=== PATIENT | male | born 1945 | race Caucasian/White ===

== ENCOUNTER 2016-09-08 13:33 | Inpatient (IN) | payer OTHER ==
[~2016-09-08] VITALS: Ht 185.4 cm; Wt 107.6 kg
[~2016-09-08 13:33] MED LIST: AMANTADINE100 M1 PO; AMANTADINE100 MG PO; ARTIFICIALS TEA30 ML BOTH EYES; BACLOFEN20 MG PO; CYMBALTA60 MG PO; DRISDOL50000 UNIT PO; DULOXETINE HCL60 MG PO; EFUDEX 5% CREAM25 GM TP; GILENYA0.5 MG PO; MELOXICAM7.5 MG PO; NICOTINE PATCH1 EAC2 TD; NORCO 5/3251 TABLET PO; OXYBUTYNIN CHLOR5 M1 PO; PANTOPRAZOLE SO40 MG PO; PERCOCET 5/31 TABLET PO; PROTONIX40 MG PO; PROVIGIL200 MG PO; SIMVASTATIN20 MG PO; TIZANIDINE HCL4 MG PO; TYLENOL EXTRA500 MG PO; VITAMIN D31000 UNIT PO; VITAMIN D50000 UNI4 PO; ZANAFLEX4 M1 PO; ZESTORETIC 20-1 EAC1 PO; [UNRECOGNIZED DRUG - OTHER] TP
[2016-09-08 14:14] LABS: EOSINOPHIL (%) 0.8 % (0-5); EOSINOPHIL COUNT 0.1 K/uL (0-0.3); HEMATOCRIT 42.6 % (38.0-50.0); IMMATURE GRANULOCYTE (%) 0.7 % (0.0-0.7); IMMATURE GRANULOCYTE COUNT 0.1 K/uL; INSTRUMENT ABS NEUTROPHIL CT 7.9 K/uL; LYMPHOCYTE COUNT 0.3 K/uL (1.0-2.8); MCH 32.1 PG (29.0-34.0); MCHC 33.3 G/DL (30.0-36.0); MCV 96.4 FL (86-99); MEAN PLAT.VOLUME 9.7 uM^3 (9.0-12.4); MONOCYTE (%) 10.9 % (3-12); NEUTROPHIL (%) 84.2 % (45-76); NEUTROPHIL COUNT 7.9 K/uL (1.8-6.4); PLATELET COUNT 263 K/uL (156-360); RBC DIS.WIDTH-CV 12.3 % (11.8-14.6); RBC DIS.WIDTH-SD 44.3 % (39-53); RED BLOOD COUNT 4.42 M/uL (4.00-5.50); WHITE BLOOD COUNT 9.4 K/uL (4.1-10.2)
[2016-09-08] MEDS ORDERED: PROVIGIL200 MG PO (14:22)
[2016-09-08] MEDS ORDERED: GILENYA0.5 MG PO (14:23)
[2016-09-08 14:25] LABS: CHLORIDE 103 mEq/L (99-109); SODIUM 138 mEq/L (136-147)
[2016-09-08] MEDS ORDERED: TRAZODONE HCL50 MG PO (14:25)
[2016-09-08] MEDS ORDERED: OXAYDO5 MG PO (14:26)
[2016-09-08 14:27] LABS: GLUCOSE 95 mg/dL (70-99)
[2016-09-08 14:28] LABS: ANION GAP 12 MEQ/L (2-14)
[2016-09-08 14:29] LABS: TOTAL BILIRUBIN 0.6 mg/dL (0.0-1.0)
[2016-09-08 14:31] LABS: ALKALINE PHOSPHATASE 118 IU/L (3-129); GFR ESTIMATE (CALCULATED) 35 mL/min/
[2016-09-08 14:32] LABS: UREA NITROGEN (BUN) 41 mg/dL (9-23)
[2016-09-08 14:35] LABS: TROP-I INTERPRETATION NEGATIVE; TROPONIN-I < 0.01 ng/mL (0.0-0.30)
[2016-09-08] MEDS ORDERED: ERGOCALCIF50000 UNIT PO (16:29)
[2016-09-08] MEDS ORDERED: CAPSAICIN57 GM TP (16:31)
[2016-09-08] MEDS ORDERED: NATURAL BALANCE15 M1 BOTH EYES (16:32)
[2016-09-08 17:30] LABS: ADD MIUA? YES; BILIRUBIN NEGATIVE; BLOOD NEGATIVE; COLOR YELLOW ((YELLOW)); GLUCOSE (STRIP) NEGATIVE; KETONES NEGATIVE; LEUKOCYTES NEGATIVE; NITRITE NEGATIVE; PROTEIN (STRIP) NEGATIVE; UROBILINOGEN 0.2 MG/DL (0.2-1.0)
[2016-09-08 17:45] LABS: BACTERIA RARE /HPF; EPITHELIAL CELLS NONE SEEN /HPF; MUCUS NONE SEEN /LPF; RED BLOOD CELLS 0-5 /HPF (0-5); UCUL ADDED? NO; WHITE BLOOD CELLS 0-5 /HPF (0-5)
[2016-09-08 18:30] VITALS: BP 100/57
[2016-09-09 00:46] VITALS: BP 95/63
[2016-09-09 06:46] LABS: ALKALINE PHOSPHATASE 127 IU/L (3-129); ANION GAP 13 MEQ/L (2-14); CHLORIDE 104 MEQ/L (99-109); GFR ESTIMATE (CALCULATED) 53 mL/min/; POTASSIUM 4.6 MEQ/L (3.7-5.4); SAMPLE HEMOLYSIS CHECK 0; SAMPLE ICTERIC CHECK 0; SAMPLE LIPEMIA CHECK 0; SODIUM 138 MEQ/L (136-147); TOTAL BILIRUBIN 0.4 MG/DL (0.0-1.0); UREA NITROGEN (BUN) 34 mg/dL (9-23)
[2016-09-09 06:49] LABS: GLUCOSE 159 mg/dL (70-99)
[2016-09-09 07:20] VITALS: BP 113/61
[2016-09-09 15:03] VITALS: BP 119/63
[2016-09-09 20:50] VITALS: BP 115/57
[2016-09-09 23:40] VITALS: BP 125/59
[2016-09-10 07:27] VITALS: BP 108/62
[2016-09-10 08:49] LABS: ANION GAP 11 MEQ/L (2-14); CHLORIDE 107 MEQ/L (99-109); GFR ESTIMATE (CALCULATED) > 59 mL/min/; POTASSIUM 4.5 MEQ/L (3.7-5.4); SAMPLE HEMOLYSIS CHECK 0; SAMPLE ICTERIC CHECK 0; SAMPLE LIPEMIA CHECK 0; SODIUM 140 MEQ/L (136-147); UREA NITROGEN (BUN) 34 mg/dL (9-23)
[2016-09-10 08:59] LABS: GLUCOSE 114 mg/dL (70-99)
[2016-09-10 10:18] LABS: D-DIMER ELISA 0.75 mg/L FEU (< 0.57)
[2016-09-10 15:15] VITALS: BP 133/71
[2016-09-10 22:16] VITALS: BP 158/86
[2016-09-10 23:44] VITALS: BP 161/72
[2016-09-11 07:30] VITALS: BP 156/78
[2016-09-11] MEDS ORDERED: AMOX TR-K CLV1 EAC3 PO (14:55)
[2016-09-11] MEDS ORDERED: PREDNISONE20 MG PO (14:55)
[2016-09-11 15:10] VITALS: BP 121/75
[2016-09-11 20:08] VITALS: BP 124/74
[2016-09-12] VITALS: BP 149/76
[2016-09-12 07:49] VITALS: BP 98/59
[2016-09-12 08:00] VITALS: BP 119/74
[2016-09-12] MEDS ORDERED: AMOX TR-K CLV1 EAC3 PO (12:18)
[2016-09-12] MEDS ORDERED: NORVASC5 MG PO (16:16)
== END 2016-09-12 15:10 | disposition home health service (06) | DRG 191 ==
LOC: EME 13:33 → EDOF 16:21 → 5SOUTH 17:12 → EDOF 17:12 → 5SOUTH 18:02
PROVIDERS: Emergency Medicine; Internal Medicine; Physician Assistant Medical
DX: J44.1 Chronic obstructive pulmonary disease with (acute) exacerbation (principal); J20.9 Acute bronchitis, unspecified; J44.0 Chronic obstructive pulmonary disease with (acute) lower respiratory infection; N17.9 Acute kidney failure, unspecified; J45.909 Unspecified asthma, uncomplicated; G35 Multiple sclerosis; I10 Essential (primary) hypertension; I95.9 Hypotension, unspecified; E86.0 Dehydration; F17.210 Nicotine dependence, cigarettes, uncomplicated; E78.5 Hyperlipidemia, unspecified; F32.9 Major depressive disorder, single episode, unspecified; K21.9 Gastro-esophageal reflux disease without esophagitis; E66.9 Obesity, unspecified; Z68.31 Body mass index [BMI] 31.0-31.9, adult
CPT/HCPCS: 70553; 71010; 71020; 78582; 80048; 80053; 81003; 83735; 84075; 84484; 85025; 85379; 93005; 93970; 94640; 94640 76; 94760; 94799; 99202; 99281; 99285; A9540; A9567; J0696; J1644; J2405; J2930; J7030; J7050; J7512

== ENCOUNTER 2017-06-07 10:33 | Day surgery (SDC) | payer OTHER ==
[~2017-06-07] VITALS: Ht 185.4 cm; Wt 99.8 kg
[~2017-06-07 10:33] MED LIST changes: +AMOX TR-K CLV1 EAC3 PO; +CAPSAICIN57 GM TP; +ERGOCALCIF50000 UNIT PO; +NATURAL BALANCE15 M1 BOTH EYES; +NORVASC5 MG PO; +OXAYDO5 MG PO; +PREDNISONE20 MG PO; +TRAZODONE HCL50 MG PO
[2017-06-07] MEDS ORDERED: VITAMIN D22000 UNIT PO (11:01)
== END 2017-06-07 12:05 | disposition home or self-care (01) ==
LOC: PAIN 10:33 → SDC 11:15 → PAIN 11:15
PROC: 3E0R3BZ Introduction of Anesthetic Agent into Spinal Canal, Percutaneous Approach (ICD-10-PCS; principal; 2017-06-07)
PROC: 3E0R33Z Introduction of Anti-inflammatory into Spinal Canal, Percutaneous Approach (ICD-10-PCS; principal; 2017-06-07)
DX: M47.816 Spondylosis without myelopathy or radiculopathy, lumbar region (principal); M54.16 Radiculopathy, lumbar region; E78.5 Hyperlipidemia, unspecified; I10 Essential (primary) hypertension; R73.03 Prediabetes; J44.9 Chronic obstructive pulmonary disease, unspecified; G35 Multiple sclerosis; F17.200 Nicotine dependence, unspecified, uncomplicated; Z79.891 Long term (current) use of opiate analgesic
CPT/HCPCS: J1100; J2250; J3010

== ENCOUNTER 2017-07-05 10:33 | Day surgery (SDC) | payer OTHER ==
[~2017-07-05 10:33] MED LIST changes: -OXAYDO5 MG PO; +ROXICODONE5 MG PO; +VITAMIN D22000 UNIT PO
== END 2017-07-05 11:45 | disposition home or self-care (01) ==
LOC: PAIN 10:33 → SDC 11:30 → PAIN 11:45
PROC: 3E0S33Z Introduction of Anti-inflammatory into Epidural Space, Percutaneous Approach (ICD-10-PCS; principal; 2017-07-05)
DX: M54.16 Radiculopathy, lumbar region (principal); M51.36 Other intervertebral disc degeneration, lumbar region; G35 Multiple sclerosis; I10 Essential (primary) hypertension; E78.5 Hyperlipidemia, unspecified; F32.9 Major depressive disorder, single episode, unspecified; F17.200 Nicotine dependence, unspecified, uncomplicated; M47.816 Spondylosis without myelopathy or radiculopathy, lumbar region; E66.9 Obesity, unspecified; Z68.30 Body mass index [BMI] 30.0-30.9, adult; R73.03 Prediabetes; E55.9 Vitamin D deficiency, unspecified; Z91.041 Radiographic dye allergy status
CPT/HCPCS: J1100; J2250; J3010